=== PATIENT | female | born 1980 | race Caucasian/White ===

== ENCOUNTER 2021-09-18 19:28 | Emergency (ER) | payer MEDICAID ==
[~2021-09-18] VITALS: Ht 165.1 cm; Wt 45.0 kg
[2021-09-18] MEDS ORDERED: TETanus/Pertussis (Acell)/Diphther VAC/PF (Tdap-Adult) 0.5ml syringe IMVAC ONE (21:55)
[2021-09-18] MEDS ORDERED: LIDOcaine 1% 30ml preserv. free vial IJ ONE (21:55)
[2021-09-18 23:11] VITALS: BP 103/58
== END 2021-09-18 23:21 | disposition home or self-care (01) ==
LOC: ER 19:29
DX: S61.412A Laceration without foreign body of left hand, initial encounter (principal); S61.411A Laceration without foreign body of right hand, initial encounter; W45.8XXA Other foreign body or object entering through skin, initial encounter; Y93.89 Activity, other specified; Y92.89 Other specified places as the place of occurrence of the external cause; Y99.8 Other external cause status
CPT/HCPCS: 12002; 73120; 90471; 90715; 99284